=== PATIENT | male | born 1975 | race African-American/Black ===

== ENCOUNTER 2020-08-30 21:23 | Observation (INO) ==
[2020-08-30 21:58] LABS: Basophils % 0.3 %; Eosinophils # 0.1 K/mcL (0.0-0.6); Eosinophils % 0.5 %; Hematocrit 43.2 % (37.5-50.1); Hemoglobin 15.1 g/dL (12.9-16.9); Immature Granulocytes % 0.3 % (0-4); Lymphocytes # 2.2 K/mcL (0.6-4.6); Lymphocytes % 17.6 %; Mean Corpuscular Hemoglobin 30.8 pg (28.0-33.3); Mean Corpuscular Volume 88.2 fL (83.0-100.0); Mean Platelet Volume 11.1 fL (9.4-12.4); Monocytes # 0.7 K/mcL (0.0-1.3); Monocytes % 5.9 %; Neutrophils # 9.3 K/mcL (1.6-8.9); Platelet Count 219 K/mcL (140-400); Red Cell Distribution Width 12.7 % (11.5-14.5); Segmented Neutrophils % 75.4 %; White Blood Count 12.3 K/mcL (4.3-11.1)
[2020-08-30 22:02] LABS: Amphetamine Screen,Urine Negative ng/mL (Cutoff=1000); Barbiturate Screen,Urine Negative ng/mL (Cutoff=200); Benzodiazepines Screen,Urine Negative ng/mL (Cutoff=200); Cannabinoid Screen,Urine Negative ng/mL (Cutoff = 50); Cocaine Screen,Urine Negative ng/mL (Cutoff= 300); Opiate Screen,Urine Negative ng/mL (Cutoff=300); Phencyclidine Screen,Urine Negative ng/mL (Cutoff=25)
[2020-08-30 22:03] LABS: Estimated Average Glucose 103 mg/dl; Hemoglobin A1C 5.2 %
[2020-08-30 22:09] LABS: Bilirubin,Urine Negative (Negative); Blood,Urine Negative (Negative); Clarity,Urine Clear (Clear); Color,Urine Colorless (Yellow); Glucose,Urine (UA) Normal (Normal); Ketones,Urine Negative (Negative); Leukocyte Esterase,Urine Negative (Negative); Nitrite,Urine Negative (Negative); PH,Urine 6.5 pH Units (5.0-8.0); Protein,Urine Negative (Neg-Trace); Specific Gravity,Urine < 1.005 (1.010-1.025); Urobilinogen,Urine Normal (Normal)
[2020-08-30 22:18] LABS: Acetaminophen < 10 mcg/mL (10-20); BUN/Creatinine Ratio 10 (6-26); Blood Urea Nitrogen 8 mg/dL (6-20); Calcium 10.1 mg/dL (8.6-10.3); Carbon Dioxide 23 mEq/L (23-29); Chloride 104 mEq/L (98-107); Chol/HDL Ratio 3.7 (0-4.9); Cholesterol 221 mg/dL (< 200); Ethanol 118 mg/dL (Less than 10); Glucose 90 mg/dL (70-105); HDL Cholesterol 60 mg/dL (40-59); LDL Cholesterol,Calculated 141 mg/dL (< 100); Osmolality,Calculated 282 (280-300); Potassium 3.4 mEq/L (3.5-5.1); Salicylate < 2.5 mg/dL (15.0-30.0); Sodium 137 mEq/L (136-145); Triglycerides 98 mg/dL (< 150); eGFR For African Americans > 60 (> 60); eGFR For Non-African Americans > 60 (> 60)
[2020-08-31] MEDS ORDERED: *HR* LORazepam 2 MG/ML VIAL IVP PRN ×3 (03:55)
[2020-08-31] MEDS ORDERED: Ondansetron 4 MG/2 ML VIAL IVP PRN (03:57)
[2020-08-31] MEDS ORDERED: Naloxone 0.4 MG/ML INJ IVP PRN (03:57)
[2020-08-31 05:55] LABS: Hematocrit 41.9 % (37.5-50.1); Hemoglobin 14.5 g/dL (12.9-16.9); Mean Corpuscular HGB Conc 34.6 g/dL (31.6-35.5); Mean Corpuscular Hemoglobin 30.7 pg (28.0-33.3); Mean Corpuscular Volume 88.6 fL (83.0-100.0); Platelet Count 211 K/mcL (140-400); Red Blood Count 4.73 M/mcL (4.19-5.50); Red Cell Distribution Width 12.9 % (11.5-14.5); White Blood Count 10.3 K/mcL (4.3-11.1)
[2020-08-31] MEDS ORDERED: Ipratropium/Albuterol Neb 3 ML IH PRN (07:57)
[2020-08-31] MEDS: Cholecalciferol (D-3) 1,000 UNIT (25MCG) TABLET PO SCH (08:47)
[2020-08-31] MEDS ORDERED: Budesonide/Formoterol 160/4.5 1 PUFF INH IH SCH (10:00)
[2020-08-31] MEDS ORDERED: Thiamine (B-1) 100 MG, Folic Acid 1 MG, MVI, adult with vitamin K 10 ML in 0.9 % Sodi... IVPB SCH (18:00)
[2020-09-01 06:01] LABS: Basophils # 0.1 K/mcL (0.0-0.2); Basophils % 0.7 %; Eosinophils # 0.2 K/mcL (0.0-0.6); Eosinophils % 2.1 %; Hematocrit 41.5 % (37.5-50.1); Hemoglobin 14.1 g/dL (12.9-16.9); Immature Granulocytes % 0.4 % (0-4); Lymphocytes # 3.3 K/mcL (0.6-4.6); Mean Corpuscular Hemoglobin 30.2 pg (28.0-33.3); Mean Corpuscular Volume 88.9 fL (83.0-100.0); Mean Platelet Volume 11.5 fL (9.4-12.4); Monocytes # 0.7 K/mcL (0.0-1.3); Monocytes % 8.5 %; Neutrophils # 4.1 K/mcL (1.6-8.9); Platelet Count 198 K/mcL (140-400); Red Blood Count 4.67 M/mcL (4.19-5.50); Red Cell Distribution Width 12.7 % (11.5-14.5); Segmented Neutrophils % 49.3 %; White Blood Count 8.4 K/mcL (4.3-11.1)
[2020-09-01 06:20] LABS: BUN/Creatinine Ratio 15 (6-26); Blood Urea Nitrogen 13 mg/dL (6-20); Calcium 9.7 mg/dL (8.6-10.3); Carbon Dioxide 26 mEq/L (23-29); Chloride 107 mEq/L (98-107); Glucose 90 mg/dL (70-105); Osmolality,Calculated 282 (280-300); Potassium 3.8 mEq/L (3.5-5.1); Sodium 136 mEq/L (136-145); eGFR For African Americans > 60 (> 60); eGFR For Non-African Americans > 60 (> 60)
[2020-09-01] MEDS: Cholecalciferol (D-3) 1,000 UNIT (25MCG) TABLET PO SCH (08:14)
[2020-09-01 11:15] VITALS: BP 151/86
== END 2020-09-01 12:23 | disposition home or self-care (01) ==
LOC: 3ANU 21:23 → EMEROOARM 21:23 → SUATTDRO 08-31 04:59 → 3ANU 08-31 05:16
PROVIDERS: ADMIT Internal Medicine; ATTEND Student in an Organized Health Care Education/Training Program

== ENCOUNTER 2020-09-01 12:14 | Inpatient (IN) ==
[2020-09-01] MEDS ORDERED: Haloperidol Lactate 5 MG/ML VIAL IM PRN (12:17)
[2020-09-01] MEDS ORDERED: MOM Conc 10 ML UD.LIQ PO PRN (12:17)
[2020-09-01] MEDS ORDERED: Mag Hydrox/Al Hydrox/Simeth 30 ML UDC PO PRN (12:17)
[2020-09-01] MEDS ORDERED: *HR* LORazepam 1 MG TABLET PO PRN (12:17)
[2020-09-01] MEDS ORDERED: hydrOXYzine pamoate 25 MG CAPSULE PO PRN (12:17)
[2020-09-01] MEDS ORDERED: haloperidoL 5 MG TABLET PO PRN (12:17)
[2020-09-01] MEDS ORDERED: traZODone 50 MG TABLET PO PRN (12:17)
[2020-09-01] MEDS ORDERED: *HR* LORazepam 2 MG/ML VIAL IM PRN (12:17)
[2020-09-01] MEDS ORDERED: Acetaminophen 325 MG TABLET PO PRN (12:17)
[2020-09-01] MEDS ORDERED: Ergocalciferol (VIT D2) 50,000 UNIT (1.25MG) CAP PO SCH (12:30)
[2020-09-02] MEDS: Tiotropium 10 INH DOSE IH SCH (09:38)
[2020-09-02] MEDS: Metoprolol XL (24 HR) Succ 50 MG TAB.ER.24H PO SCH (09:39)
[2020-09-02] MEDS: Budesonide/Formoterol 160/4.5 1 PUFF INH IH SCH (10:25)
[2020-09-02] MEDS: ARIPiprazole 5 MG TABLET PO SCH (15:11)
[2020-09-03] MEDS: Budesonide/Formoterol 160/4.5 1 PUFF INH IH SCH ×2 (00:06→09:21)
[2020-09-03] MEDS: ARIPiprazole 5 MG TABLET PO SCH (09:21)
[2020-09-03] MEDS: Metoprolol XL (24 HR) Succ 50 MG TAB.ER.24H PO SCH (09:21)
[2020-09-03] MEDS: Tiotropium 10 INH DOSE IH SCH (09:22)
[2020-09-03 09:36] VITALS: BP 157/91
== END 2020-09-03 13:10 | disposition home or self-care (01) | DRG 751 ==
LOC: 1ANU 12:14
PROVIDERS: ADMIT Psychiatry & Neurology Psychiatry; ATTEND Psychiatry & Neurology Psychiatry

== ENCOUNTER 2020-09-22 05:33 | Inpatient (IN) ==
[2020-09-22] MEDS ORDERED: Acetaminophen 325 MG TABLET PO PRN (07:40)
[2020-09-22] MEDS ORDERED: Naloxone 0.4 MG/ML INJ IVP PRN (07:40)
[2020-09-22] MEDS ORDERED: Ondansetron 4 MG/2 ML VIAL IVP PRN (07:40)
[2020-09-22] MEDS ORDERED: Melatonin 3 MG TABLET PO PRN (07:40)
[2020-09-22] MEDS ORDERED: Aspirin 325 MG TABLET PO ONE (07:52)
[2020-09-22] MEDS ORDERED: Perflutren Lipid Microsphere 1.3 ML in 0.9 % Sodium Chloride 8.7 ML IVP PRN (07:55)
[2020-09-22] MEDS: ARIPiprazole 5 MG TABLET PO SCH (09:24)
[2020-09-22] MEDS: Metoprolol XL (24 HR) Succ 50 MG TAB.ER.24H PO SCH (09:24)
[2020-09-22 10:23] LABS: C-Reactive Protein < 5 mg/L (Less than 10); Troponin I < 0.03 ng/mL (< 0.04)
[2020-09-22 10:26] LABS: Adenovirus Not Detected (Not Detect); Bordetella Pertussis Not Detected (Not Detect); Chlamydophila pneumoniae Not Detected (Not Detect); Coronavirus 229E Not Detected (Not Detect); Coronavirus HKU1 Not Detected (Not Detect); Coronavirus NL63 Not Detected (Not Detect); Coronavirus OC43 Not Detected (Not Detect); Human Metapneumovirus Not Detected (Not Detect); Human Rhinovirus/Enterovirus Not Detected (Not Detect); Influenza A Subtype 2009 H1 Not Detected (Not Detect); Influenza B Not Detected (Not Detect); Mycoplasma pneumoniae Not Detected (Not Detect); Parainfluenza Virus 1 Not Detected (Not Detect); Parainfluenza Virus 2 Not Detected (Not Detect); Parainfluenza Virus 3 Not Detected (Not Detect); Parainfluenza Virus 4 Not Detected (Not Detect); Respiratory Syncytial Virus Not Detected (Not Detect); SARS-CoV-2 Not Detected (Not Detect)
[2020-09-22] MEDS ORDERED: Nicotine 14 MG PATCH.TD24 TD PRN (12:51)
[2020-09-22] MEDS ORDERED: *HR* Heparin 5,000 UNIT/ML VIAL IVP PRN ×2 (15:05)
[2020-09-22] MEDS: Heparin 25,000UNIT/250ML 1/2NS 25,000 UNIT/250 ML IV.SOLN IVC SCH (15:48)
[2020-09-23 06:03] LABS: BUN/Creatinine Ratio 20 (6-26); Blood Urea Nitrogen 18 mg/dL (6-20); Calcium 10.1 mg/dL (8.6-10.3); Carbon Dioxide 24 mEq/L (23-29); Chloride 105 mEq/L (98-107); Glucose 108 mg/dL (70-105); Osmolality,Calculated 284 (280-300); Sodium 136 mEq/L (136-145); Troponin I < 0.03 ng/mL (< 0.04); eGFR For African Americans > 60 (> 60); eGFR For Non-African Americans > 60 (> 60)
[2020-09-23] MEDS: Metoprolol XL (24 HR) Succ 50 MG TAB.ER.24H PO SCH (08:28)
[2020-09-23] MEDS: ARIPiprazole 5 MG TABLET PO SCH (08:28)
[2020-09-23] MEDS ORDERED: Aspirin 81 MG TAB.CHEW PO SCH (09:00)
[2020-09-23] MEDS ORDERED: *HR* FentaNYL (PF) 100 MCG/2 ML VIAL ONE (14:42)
[2020-09-23] MEDS ORDERED: *HR* Midazolam HCl 2 MG/2 ML VIAL ONE (14:42)
[2020-09-23] MEDS ORDERED: Nitroglycerin 1,000 MCG/5 ML VIAL IV ONE (14:43)
[2020-09-23] MEDS ORDERED: Heparin 1,000 UNITS/500 mL 500 ML ONE (14:43)
[2020-09-23] MEDS ORDERED: *HR* Heparin 10,000 UNIT/10 ML VIAL ONE (14:43)
[2020-09-23] MEDS ORDERED: 0.9 % Sodium Chloride 1,000 ML ONE (14:43)
[2020-09-23] MEDS ORDERED: ISOVUE-370 200 ML INFUS..BTL ONE (14:43)
[2020-09-23] MEDS: Heparin 25,000UNIT/250ML 1/2NS 25,000 UNIT/250 ML IV.SOLN IVC SCH (17:44)
[2020-09-23 18:06] VITALS: BP 122/81
== END 2020-09-23 20:10 | disposition home or self-care (01) | DRG 192 ==
LOC: 3BNU → SUATTDRO 07:11
PROVIDERS: ADMIT Internal Medicine; ATTEND Internal Medicine